=== PATIENT | male | born 1950 | race Caucasian/White ===

== ENCOUNTER 2021-06-18 10:46 | Emergency (ER) | payer MEDICARE, SELFPAY ==
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
[2021-06-18 11:06] VITALS: BP 105/60; PULSE 98; RESP 20; TEMP 36.6; O2SAT 99
--- NOTE | 2021-06-18 11:35 | ED.URI ---
HPI - URI/Sore Throat General Chief Complaint: Upper Respiratory Infection Stated Complaint: Congestion Time Seen by Provider: 06/18/21 11:19 Source: patient and RN notes reviewed Mode of arrival: ambulatory Limitations: no limitations History of Present Illness HPI Narrative: Patient presents today with a 10-day history of shortness of breath, productive cough, fever up to 100.3, nasal congestion, rhinorrhea. Denies nausea, vomiting, sore throat, ear pain. History of COPD. He does not use inhalers, use oxygen. States he has been taking Mucinex once a day since he has been ill. MD elicited complaint: fever and cough Related Data Home Medications Medication Instructions Recorded Confirmed finasteride 5 mg PO DAILY 06/18/21 06/18/21 omeprazole [Prilosec] 10 mg PO DAILY 06/18/21 06/18/21 tamsulosin 0.8 mg PO DAILY 06/18/21 06/18/21 Allergies Allergy/AdvReac Type Severity Reaction Status Date / Time No Known Allergies Allergy Verified 12/25/15 15:04 Review of Systems Review of Systems: CONSTITUTIONAL: Denies body aches, chills, or sweats.+ Your EYES: Denies visual changes, redness, or discharge. ENT: Denies sore throat, or otalgia.+ Rhinorrhea, congestion CARDIOVASCULAR: Denies chest pain, palpitations, or edema. RESPIRATORY: + Cough, shortness of breath GASTROINTESTINAL: Denies abdominal pain, nausea, vomiting, or diarrhea. GENITOURINARY: Denies dysuria or hematuria. SKIN: Denies rash, itching, or wounds. MUSCULOSKELETAL: Denies back pain, joint pain, or myalgia. NEUROLOGIC: Denies headache, numbness, tingling, or weakness. PSYCH: Denies depression or anxiety. [facility] Past Medical History Medical History (Updated 06/18/21 @ 12:24 by Kelly Mcdonnell, CHEMICAL ECONOMIST, ) COPD (chronic obstructive pulmonary disease) Comments At time of signature, I have reviewed and agree with nursing past medical, surgical, social and family history unless otherwise noted. Please see nursing chart for further information. There is no relevant family history pertinent to the presenting complaint Exam Narrative: GENERAL: Well-appearing, well-nourished, and in no acute distress. HEAD: Normocephalic, atraumatic. EYES: EOMI. No redness or drainage. Conjunctivae normal. ENT: Mucous membranes pink and moist. Nares clear. No rhinorrhea. TMs normal bilaterally. Throat normal. Uvula midline. NECK: Normal AROM. Supple. No lymphadenopathy. CHEST: No respiratory distress. Slight crackles in the bilateral bases, otherwise clear. HEART: Regular rate and rhythm. No murmur appreciated. Normal peripheral pulses. EXTREMITIES: Normal range of motion. No edema. SKIN: Warm, dry, no rash. Capillary refill normal. Normal skin turgor. NEURO: No focal deficits. Alert and oriented x3. Gait steady. PSYCH: Normal affect. No signs of depression or anxiety. Course Vital Signs Vital signs: Vital Signs Temperature 97.8 F 06/18/21 11:06 Pulse Rate 98 06/18/21 11:06 Respiratory Rate 20 06/18/21 11:06 Blood Pressure 105/60 06/18/21 11:06 Pulse Oximetry 99 06/18/21 11:06 Temperature 97.8 F 06/18/21 11:06 Pulse Rate 98 06/18/21 11:06 Respiratory Rate 20 06/18/21 11:06 Blood Pressure 105/60 06/18/21 11:06 Pulse Oximetry 99 06/18/21 11:06 Reviewed. Pt has been instructed to follow up with his PCP regarding his elevated blood pressure today. MDM - URI/Sore Throat Differential Diagnosis Differential diagnosis: Likely upper respiratory infection, sinusitis, viral infection, bronchitis and other (COPD exacerbation, COVID-19) Lab Data Attestation: I reviewed the patient's lab results. Lab results narrative: Rapid COVID-19 test positive Imaging Data Radiologist's impression: ITS Impressions Chest X-Ray 06/18/21 11:46 IMPRESSION: 1. Opacities in the left lower lung zone most likely related to a prominent left paracardial fat pad and adjacent lingular atelectasis. Pneumonia considered less likely. Crit
== END 2021-06-18 12:30 | disposition home or self-care (01) ==
PROVIDERS: Emergency Provider Nurse Practitioner
DX: U07.1 COVID-19 (principal); J44.9 Chronic obstructive pulmonary disease, unspecified
CPT/HCPCS: 71046; 87426; 99203; C9803; G0463

== ENCOUNTER 2022-02-09 13:24 | Emergency (ER) | payer MEDICARE, SELFPAY ==
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
[2022-02-09 13:30] VITALS: BP 113/66; PULSE 103; RESP 20; TEMP 37.3; O2SAT 100
--- NOTE | 2022-02-09 13:57 | ED.URI ---
HPI - URI/Sore Throat General Chief Complaint: Upper Respiratory Infection Stated Complaint: Sore Throat/Chest Congestion/Cough Time Seen by Provider: 02/09/22 13:55 Source: patient, RN notes reviewed and old records reviewed Mode of arrival: ambulatory Limitations: no limitations History of Present Illness HPI Narrative: 71-year-old male presents to [facility] with complaints of sore throat and productive cough for the past 4 days reports he is not sleeping well related to the cough. He reports that he has chest pain along the lower rib lines of his chest wall bilaterally related to cough and does have some increased pain when he takes a deep breath. He report some dyspnea with cough and activity does have history of COPD. Request refill of Albuterol states left inhaler in [place]. MD elicited complaint: cough and sore throat Pertinent past history: COPD Related Data Home Medications Medication Instructions Recorded Confirmed finasteride 5 mg PO DAILY 06/18/21 02/09/22 omeprazole [Prilosec] 10 mg PO DAILY 06/18/21 02/09/22 tamsulosin 0.8 mg PO DAILY 06/18/21 02/09/22 Allergies Allergy/AdvReac Type Severity Reaction Status Date / Time No Known Allergies Allergy Verified 02/09/22 13:47 Review of Systems Review of Systems: CONSTITUTIONAL: low grade fever, no chills, or sweats. EYES: Denies visual changes, redness, or discharge. ENT: Denies rhinorrhea, congestion, positive for sore throat, or otalgia. CARDIOVASCULAR: Denies chest pain, palpitations, or edema. pain along ribs form coughing RESPIRATORY: Positive for cough states some dyspnea at times with exertion and cough GASTROINTESTINAL: Denies abdominal pain, nausea, vomiting, or diarrhea. GENITOURINARY: Denies dysuria or hematuria. SKIN: Denies rash or itching. MUSCULOSKELETAL: Denies back pain, joint pain,no myalgia NEUROLOGIC: Denies headache, numbness, or weakness. PSYCHIATRIC: Denies anxiety or depression. All systems reviewed & are unremarkable except as noted in HPI and below PMFSH Past Medical History Medical History (Updated 02/10/22 @ 22:28 by Valeria Munoz NP) BPH (benign prostatic hyperplasia) Closed fracture of left clavicle COPD (chronic obstructive pulmonary disease) COVID-19 05/2021 GERD (gastroesophageal reflux disease) Surgical History Surgical History (Updated 02/09/22 @ 14:19 by Valeria Munoz NP) H/O inguinal hernia repair History of tonsillectomy As child History of umbilical hernia repair Social History Social History (Updated 02/09/22 @ 14:15 by Valeria Munoz NP) Smoking status: Former smoker Tobacco type: cigarettes Additional smoking assessment comments: quit 15 years ago Alcohol intake: current Substance use type: does not use Living arrangements: with family Gender identity (if verbalized by the patient): Male Comments At time of signature, agree with nursing past medical, surgical, social and family history. There is no relevant family history pertinent to the presenting complaint Exam Narrative: GENERAL: Ill-appearing, well-nourished, and in no acute distress. HEAD: Normocephalic, atraumatic. EYES: PERRLA and EOMI. ENT: Nares with mild redness, some clear rhinorrhea no epistaxis. Mucous membranes moist.TM's normal with good light reflex, throat red with no exudates or lesions, no exudates or lesions, tonsils absent NECK: Supple.no lymphadenopathy CHEST: Rhonchi to left base and mid lung with decreased breath sounds on auscultation. No acute respiratory distress.No tachypnea noted SAO2 100% harsh cough noted HEART: Regular rate and rhythm. No murmur heard. Normal peripheral pulses. ABDOMEN: Soft, nontender, nondistended, normal active bowel sounds. EXTREMITIES: Normal range of motion. No edema. SKIN: Warm, dry, no rash. NEURO: No focal deficits. Alert and oriented x3. Course Course Level of Care: Express Care Visit Vital Signs Vital signs: Vital Signs Temperature 37.3 C 02/09
== END 2022-02-09 15:05 | disposition home or self-care (01) ==
PROVIDERS: Emergency Provider Registered Nurse
DX: J18.1 Lobar pneumonia, unspecified organism (principal); Z87.891 Personal history of nicotine dependence; N40.0 Benign prostatic hyperplasia without lower urinary tract symptoms; J44.9 Chronic obstructive pulmonary disease, unspecified; K21.9 Gastro-esophageal reflux disease without esophagitis; Z86.16 Personal history of COVID-19
CPT/HCPCS: 71046; 99213; G0463

== ENCOUNTER 2022-02-11 11:21 | Emergency (ER) | payer MEDICARE, SELFPAY ==
[2022-02-11 11:28] VITALS: BP 119/75; PULSE 86; RESP 14; TEMP 36.9; O2SAT 100
--- NOTE | 2022-02-11 11:33 | ED.SKABFB ---
HPI - Skin/Abscess/Foreign Bdy General Chief complaint: Skin/Abscess/Foreign Body Stated complaint: Rash Time Seen by Provider: 02/11/22 11:33 Source: patient and RN notes reviewed History of Present Illness HPI narrative: Patient is a 71-year-old male who presents the urgent care with complaints of a rash and itchiness. Patient states that he was seen at our facility 2 days ago and started on prednisone and levofloxacin. Patient states that he is unsure which 1 he is allergic to but discontinued the medications. Patient states he feels much better after being on the antibiotics to treat his pneumonia. Patient reports of decreasing cough and denies of any fevers, chills, chest pain. Patient has been taking Benadryl for the itch and using an anti-itch cream. No other acute complaints. No acute distress noted. Patient aware of the plan of care. Some parts of this dictation were generated by voice recognition software and may contain typographical and/or grammatical inaccuracies. Related Data Home Medications Medication Instructions Recorded Confirmed finasteride 5 mg PO DAILY 06/18/21 02/11/22 omeprazole [Prilosec] 10 mg PO DAILY 06/18/21 02/11/22 tamsulosin 0.8 mg PO DAILY 06/18/21 02/11/22 Allergies Allergy/AdvReac Type Severity Reaction Status Date / Time levofloxacin Allergy Itching Verified 02/11/22 11:35 Review of Systems Review of Systems: CONSTITUTIONAL: Denies fever, chills, or sweats. EYES: Denies visual changes, redness, or discharge. ENT: Denies rhinorrhea, congestion, sore throat, or otalgia. CARDIOVASCULAR: Denies chest pain, palpitations, or edema. RESPIRATORY: Denies cough or dyspnea. GASTROINTESTINAL: Denies abdominal pain, nausea, vomiting, or diarrhea. GENITOURINARY: Denies dysuria or hematuria. SKIN: Reports of an itchy rash to bilateral lower arms and right lower leg MUSCULOSKELETAL: Denies back pain, joint pain, or myalgia. NEUROLOGIC: Denies headache, numbness, or weakness. All other systems reviewed are negative, except as documented in HPI. [facility] Past Medical History Medical History (Updated 02/11/22 @ 11:51 by SAMMIE Clark) BPH (benign prostatic hyperplasia) Closed fracture of left clavicle COPD (chronic obstructive pulmonary disease) COVID-19 05/2021 GERD (gastroesophageal reflux disease) Surgical History Surgical History (Updated 02/09/22 @ 14:19 by Valeria Munoz NP) H/O inguinal hernia repair History of tonsillectomy As child History of umbilical hernia repair Social History Social History (Updated 02/09/22 @ 14:15 by Valeria Munoz NP) Smoking status: Former smoker Tobacco type: cigarettes Additional smoking assessment comments: quit 15 years ago Alcohol intake: current Substance use type: does not use Gender identity (if verbalized by the patient): Male Comments At the time of my signature, I reviewed and agree with the nursing past medical, surgical, social, and family history. There is no relevant family history pertinent to the patient complaint. Exam Narrative: GENERAL: This is a well-nourished, well-developed patient, in no apparent distress. HEAD: normocephalic, atraumatic. EYES: PERRL. Sclera clear/white. Vision is grossly intact. EARS: External ears normal, auditory canals clear and without drainage, TMs normal without perforation. Hearing grossly intact. NOSE: External nose normal with no obvious nasal discharge, nares without redness, no rhinorrhea. THROAT: Mucous membranes moist, posterior pharynx clear. Mild postnasal drainage NECK: Neck supple CARDIOVASCULAR: Regular rate and rhythm without murmurs, gallops, or rubs. RESPIRATORY: Scant expiratory wheeze to right upper lobe slightly decreased bibasilar SKIN: Erythemic fine papular pruritic dermatitis noted to bilateral forearms and right lower leg NEURO: awake, alert, and oriented to person, place and time. There were no obvious focal neurologic abnormalities. EXTREMITIES:
[2022-02-11 11:36] VITALS: BP 119/75; PULSE 86; RESP 14; TEMP 36.9; O2SAT 100
== END 2022-02-11 11:55 | disposition home or self-care (01) ==
PROVIDERS: Emergency Provider Nurse Practitioner Family
DX: L27.0 Generalized skin eruption due to drugs and medicaments taken internally (principal); T36.8X5A Adverse effect of other systemic antibiotics, initial encounter; Z87.891 Personal history of nicotine dependence; N40.0 Benign prostatic hyperplasia without lower urinary tract symptoms; J44.9 Chronic obstructive pulmonary disease, unspecified; K21.9 Gastro-esophageal reflux disease without esophagitis; Z86.16 Personal history of COVID-19
CPT/HCPCS: 99213; G0463

== ENCOUNTER 2022-04-19 16:54 | Emergency (ER) | payer MEDICARE, SELFPAY ==
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
--- NOTE | 2022-04-19 17:07 | ED.URI ---
HPI - URI/Sore Throat General Chief Complaint: Fever Stated Complaint: chest pains and around covid patient Time Seen by Provider: 04/19/22 17:07 Source: patient Mode of arrival: ambulatory Limitations: no limitations History of Present Illness HPI Narrative: 71 yo M presents with c/o continued cough, fatigue, some mild SOB with exertion. Was seen here about a week ago with similar complaint. Was given levaquin that caused rash but he continue to take medication. Is concerned that he is still sick or has now developed pneumonia. Speaking in full sentences. No resp distress noted. No other complaints today. All systems reviewed and negative except as noted above. Related Data Home Medications Medication Instructions Recorded Confirmed finasteride 5 mg tablet 5 mg PO DAILY 06/18/21 04/19/22 omeprazole 10 mg capsule,delayed 10 mg PO DAILY 06/18/21 04/19/22 release tamsulosin 0.4 mg capsule 0.8 mg PO DAILY 06/18/21 04/19/22 Allergies Allergy/AdvReac Type Severity Reaction Status Date / Time levofloxacin Allergy Itching Verified 04/19/22 17:09 Review of Systems Review of Systems: CONSTITUTIONAL: Denies fever, chills, or sweats. Reports fatigue. EYES: Denies visual changes, redness, or discharge. ENT: Denies rhinorrhea, congestion, sore throat, or otalgia. CARDIOVASCULAR: Denies chest pain, palpitations, or edema. RESPIRATORY: Reports cough and dyspnea on exertion. GASTROINTESTINAL: Denies abdominal pain, nausea, vomiting, or diarrhea. GENITOURINARY: Denies dysuria or hematuria. SKIN: Denies rash or itching. MUSCULOSKELETAL: Denies back pain, joint pain, or myalgia. NEUROLOGIC: Denies headache, numbness, or weakness. PSYCHIATRIC: Denies anxiety or depression. All other systems reviewed are negative, except as documented in HPI. [facility] Past Medical History Medical History (Updated 04/20/22 @ 00:00 by Nabor Combs) BPH (benign prostatic hyperplasia) Closed fracture of left clavicle COPD (chronic obstructive pulmonary disease) COVID-19 05/2021 GERD (gastroesophageal reflux disease) Surgical History Surgical History (Updated 02/09/22 @ 14:19 by Valeria Munoz NP) H/O inguinal hernia repair History of tonsillectomy As child History of umbilical hernia repair Social History Social History (Updated 02/09/22 @ 14:15 by Valeria Munoz NP) Smoking status: Former smoker Tobacco type: cigarettes Additional smoking assessment comments: quit 15 years ago Alcohol intake: current Substance use type: does not use Gender identity (if verbalized by the patient): Male Comments At time of signature, agree with nursing past medical, surgical, social and family history. There is no relevant family history pertinent to the presenting complaint. Exam Narrative: GENERAL: This is a well-nourished, well-developed patient, in no apparent distress. HEAD: normocephalic, atraumatic. EYES: PERRL. Sclera clear/white. Vision is grossly intact. EARS: External ears normal, auditory canals clear and without drainage, TMs normal without perforation. Hearing grossly intact. NOSE: External nose normal with no obvious nasal discharge, nares without redness, no rhinorrhea. THROAT: Mucous membranes moist, posterior pharynx clear. NECK: Neck supple, non-tender without lymphadenopathy, masses or thyromegaly. CARDIOVASCULAR: Regular rate and rhythm without murmurs, gallops, or rubs. RESPIRATORY: Decreased lung sounds to bilateral bases otherwise lung sounds are clear. Breath sounds equal bilaterally. No wheezes, rales, or rhonchi. SKIN: warm, Dry, intact with no suspicious lesions or rash, good texture and turgor. NEURO: awake, alert, and oriented to person, place and time. There were no obvious focal neurologic abnormalities. EXTREMITIES: No joint tenderness, effusion, or edema noted. Course Course Level of Care: Express Care Visit Vital Signs Vital signs: Vital Signs Temperature 37.8 C H 04/19/22 17:10
[2022-04-19 17:10] VITALS: BP 138/74; PULSE 79; RESP 16; TEMP 37.8; O2SAT 99
== END 2022-04-19 18:01 | disposition home or self-care (01) ==
PROVIDERS: Emergency Provider Nurse Practitioner Family
DX: J18.9 Pneumonia, unspecified organism (principal); Z20.822 Contact with and (suspected) exposure to COVID-19; Z87.891 Personal history of nicotine dependence; N40.0 Benign prostatic hyperplasia without lower urinary tract symptoms; J44.9 Chronic obstructive pulmonary disease, unspecified; K21.9 Gastro-esophageal reflux disease without esophagitis; Z86.16 Personal history of COVID-19
CPT/HCPCS: 71046; 87426; 99213; C9803; G0463

== ENCOUNTER 2023-02-10 08:48 | Emergency (ER) | payer MEDICARE, SELFPAY ==
[2023-02-10 08:54] VITALS: BP 120/69; PULSE 98; RESP 20; TEMP 36.6; O2SAT 95
--- NOTE | 2023-02-10 09:04 | ED.EAR ---
HPI - Ear Problem General Chief complaint: Ear Stated complaint: ear pain Time Seen by Provider: 02/10/23 09:06 Source: patient and RN notes reviewed Mode of arrival: ambulatory Limitations: no limitations History of Present Illness HPI Narrative: 72-year-old male presents with concern for fullness in the left ear for about 2 months. He reports he also has had sinus pressure and congestion, drainage on the left side for the same amount of time. He reports he has not taken any medications for it. He denies any pain, drainage from the ear. MD Complaint: other (Ear fullness) Related Data Home Medications Medication Instructions Recorded Confirmed finasteride 5 mg tablet 5 mg PO DAILY 06/18/21 02/10/23 tamsulosin 0.4 mg capsule 0.8 mg PO DAILY 06/18/21 02/10/23 folic acid 1 mg tablet 1 mg PO DAILY 02/10/23 02/10/23 oxybutynin chloride 5 mg 5 mg PO BID 02/10/23 02/10/23 tablet,extended release 24 hr Allergies Allergy/AdvReac Type Severity Reaction Status Date / Time levofloxacin Allergy Itching Verified 02/10/23 09:07 Review of Systems Review of Systems: CONSTITUTIONAL: Denies malaise, chills, sweats, or fever. EYES: Denies visual changes, redness, or discharge. ENT: Reports left ear fullness, left sinus congestion, pressure, drainage CARDIOVASCULAR: Denies chest pain, palpitations, or edema. RESPIRATORY: Denies cough. Denies dyspnea. GASTROINTESTINAL: Denies abdominal pain, nausea, vomiting, diarrhea SKIN: Denies rash or itching. MUSCULOSKELETAL: Denies myalgia. NEUROLOGIC: Denies headache. All systems reviewed & are unremarkable except as noted in HPI and below PMFSH Past Medical History Medical History (Updated 02/10/23 @ 09:13 by Meenakshi August NP) BPH (benign prostatic hyperplasia) Closed fracture of left clavicle COPD (chronic obstructive pulmonary disease) COVID-19 05/2021 GERD (gastroesophageal reflux disease) Surgical History Surgical History (Updated 02/09/22 @ 14:19 by Valeria Munoz NP) H/O inguinal hernia repair History of tonsillectomy As child History of umbilical hernia repair Social History Social History (Updated 02/09/22 @ 14:15 by Valeria Munoz NP) Smoking status: Former smoker Tobacco type: cigarettes Additional smoking assessment comments: quit 15 years ago Alcohol intake: current Substance use type: does not use Living arrangements: with family Gender identity (if verbalized by the patient): Male Comments At time of signature, agree with nursing past medical, surgical, social and family history. There is no relevant family history pertinent to the presenting complaint Exam Narrative: GENERAL: Well-appearing, well-nourished, and in no acute distress. HEAD: Normocephalic EYES: PERRLA, conjunctivae clear ENT: Nares clear, left turbinates edematous, erythematous. Mucous membranes moist. Left tM pearly jenkins with dull light reflex, right TM with sharp reflex; no tragal tenderness. Oropharynx not erythematous without lesions. Tonsils not enlarged and without exudate, no drooling, no hoarseness, no trismus, uvula midline. NECK: Supple. No lymphadenopathy CHEST: Clear to auscultation, breath sounds equal. No wheezing, rhonchi, rales, or stridor. No respiratory distress, speaks in full sentences. HEART: Regular rate and rhythm. No murmur heard. SKIN: Warm, dry, no rash. NEURO: Alert and oriented x3. PSYCH: Normal mood and affect Course Course Emergency Course: Patient is aware of diagnosis, understands and agrees to treatment plan. Anticipatory guidance given. Patient agrees to follow-up as directed and is aware of reasons to seek care at the emergency department. Portions of this record may have been created with voice recognition software Level of Care: Express Care Visit Vital Signs Vital signs: Vital Signs Temperature 97.8 F 02/10/23 08:54 Pulse Rate 98 02/10/23 08:54 Respiratory Rate 20 02/10/23 08:54 Blood Pressure
== END 2023-02-10 09:17 | disposition home or self-care (01) ==
PROVIDERS: Emergency Provider Nurse Practitioner
DX: J01.90 Acute sinusitis, unspecified (principal); H74.8X2 Other specified disorders of left middle ear and mastoid; N40.0 Benign prostatic hyperplasia without lower urinary tract symptoms; J44.9 Chronic obstructive pulmonary disease, unspecified; K21.9 Gastro-esophageal reflux disease without esophagitis; Z86.16 Personal history of COVID-19
CPT/HCPCS: 99213; G0463

== ENCOUNTER 2025-08-25 13:57 | Emergency (ER) | payer MEDICARE, SELFPAY ==
[2025-08-25 14:06] VITALS: BP 151/83; PULSE 100; RESP 16; TEMP 36.7; O2SAT 100
--- NOTE | 2025-08-25 14:06 | ED.SKABFB ---
HPI - Skin/Abscess/Foreign Bdy General Chief complaint: Skin/Abscess/Foreign Body Stated complaint: Rash around stomach Time Seen by Provider: 08/25/25 14:21 Source: patient, RN notes reviewed and old records reviewed Mode of arrival: ambulatory Limitations: no limitations History of Present Illness HPI narrative: 75-year-old male presents to the [facility] with complaints of a rash to his abdomen that has been intermittent for approximately 2 months. In May he was treated with doxycycline and clobetasol. In June he was treated with triamcinolone. Has not followed up with his primary care provider. Related Data Home Medications ?Medication ?Instructions ?Recorded ?Confirmed ?Last Taken ?Type finasteride 5 mg tablet 5 mg PO DAILY 06/18/21 02/10/23 Unknown History tamsulosin 0.4 mg capsule 0.8 mg PO DAILY 06/18/21 02/10/23 Unknown History folic acid 1 mg tablet 1 mg PO DAILY 02/10/23 02/10/23 Unknown History oxybutynin chloride 5 mg 5 mg PO BID 02/10/23 02/10/23 Unknown History tablet,extended release 24 hr Allergies Allergy/AdvReac Type Severity Reaction Status Date / Time levofloxacin Allergy Itching Verified 08/25/25 13:59 Review of Systems Review of Systems: All systems reviewed & are unremarkable except as noted in HPI and below Constitutional: Constitutional: Reports no additional constitutional complaints ENT: Reports system reviewed and no additional complaints, except as documented Cardiovascular: Cardiovascular: Reports no additional cardiovascular complaints, Denies chest pain and Denies dyspnea Respiratory: Respiratory: Reports no additional respiratory complaints, Denies chest congestion, Denies cough and Denies dyspnea Musculoskeletal: Musculoskeletal: Reports no additional musculoskeletal complaints Integumentary/Breasts: Skin/Breast: Reports as per HPI and Reports rash PMFSH Past Medical History Medical History COVID-19 05/2021 GERD (gastroesophageal reflux disease) Closed fracture of left clavicle BPH (benign prostatic hyperplasia) COPD (chronic obstructive pulmonary disease) Surgical History Surgical History H/O inguinal hernia repair History of tonsillectomy As child History of umbilical hernia repair Social History Social History (Reviewed 08/26/25 @ 20:15 by BARRY Martinez Smoking status: Former smoker Tobacco type: cigarettes Additional smoking assessment comments: quit 15 years ago Alcohol intake: current Substance use type: does not use Living arrangements: with family Gender identity (if verbalized by the patient): Male Comments At the time of my signature, I reviewed and agree with the nursing past medical, surgical, social, and family history. There is no relevant family history pertinent to the patient complaint. Exam Const: General: cooperative, healthy appearing, comfortable, no acute distress, well developed, alert and well nourished Nutritional Appearance: well nourished Orientation/consciousness: patient oriented x3 Limitations: no limitations HENMT: Head: normal to inspection Eyes: General: appearance normal, both eyes and all related structures Alignment and Position: alignment normal Neck: Neck: normal visual inspection, full ROM, no lymphadenopathy and no meningeal signs Chest: Chest palpation & inspection: normal inspection of the chest Resp: Effort & Inspection: normal respiratory effort and able to speak in complete sentences Auscultation: clear to auscultation bilaterally, no crackles, no rales, no rhonchi and no wheezes Cardio: Rate: regular rate Skin: General skin exam: normal color and no rashes or lesions noted Rashes: rashes noted ( find pink rash, not raised patient describes as itchy generalized abdomen) Neuro: General: patient oriented x3, gait normal, moves all extremities and no meningeal signs Cognition (Neuro): normal cognition Speech: normal speech Gait exam (Neuro): Normal gait present Extrem: General: normal to inspection, full ROM, capillary refill normal and normal gait Psych: Appearance: grossly normal and well kempt Mental Status: mental status grossly normal Speech and movement: Normal speech and movement present and Clear speech present Affect: normal affect Attitude: cooperative Course Course Level of Care: Express Care Visit Vital Signs Vital signs: Vital Signs Temperature 98.1 F 08/25/25 14:06 Pulse Rate 100 08/25/25 14:06 Respiratory Rate 16 08/25/25 14:06 Blood Pressure 151/83 H 08/25/25 14:06 Pulse Oximetry 100 08/25/25 14:06 Oxygen Delivery Room Air 08/25/25 14:06 Temperature 98.1 F 08/25/25 14:06 Pulse Rate 100 08/25/25 14:06 Respiratory Rate 16 08/25/25 14:06 Blood Pressure 151/83 H 08/25/25 14:06 Pulse Oximetry 100 08/25/25 14:06 Oxygen Delivery Room Air 08/25/25 14:06 reviewed MDM MDM Narrative Medical decision making narrative: patient presents with an on and off rash for over 2 months. Has been treated twice with steroid creams, once with antibiotic. Has not followed up to find the cause of this rash. Discussed in great detail the importance of following up probably with dermatology or primary care provider for the underlying cause of why this rash keeps returning. Patient denies any new creams ointments lotions detergents. Discharge instructions reviewed with patient, as well as provided in writing per nursing staff. The instructions also include specific and strict return/GO TO THE ER as well as f/u information. All questions have been answered, and the patient deny any further questions with discharge and discharge plan. Some parts of this dictation were generated by voice recognition software and may contain typographical and/or grammatical inaccuracies. Differential Diagnosis Differential Diagnosis: Differential diagnostic considerations for skin/abscess/foreign body issues include abscess of skin or subcutaneous tissue, viral exanthem, dermatophytosis, urticaria, herpes zoster, allergic reaction to drug, cellulitis, eczema, insect bites, impetigo, contact dermatitis, vasculitis. Critical Care Time Critical Care Time Critical Care Time: No Discharge Plan Discharge Clinical Impression: Chronic pruritic rash in adult Patient Disposition: Home Condition: Stable Instructions: Antibiotic Form, Urticaria (ED) Additional Instructions: The most important part of your care is follow up with Primary care provider. You may even want to consider seeing a car hop as soon as possible to figure out what the underlying cause of this rashes. Without treating an underlying cause the rash will keep coming back Today your blood pressure was 151/83. Please follow-up with your primary care provider within 2 weeks to have this rechecked. Untreated or undertreated blood pressure can the lead to more serious health issues Take Zyrtec every day for 14 days Take Pepcid 20mg daily for 14 days Take the steroids starting today and take as prescribed apply your triamcinolone ointment as prescribed twice a day. Avoid hot showers, Take cool showers. Hot showers will make rashes worse Apply cool compresses every 2-3 hours for 15 minutes Go to the ER for new or worsening symptoms such as shortness of breath. Patient Language: German Prescriptions: New methylprednisolone [Medrol (Doug)] 4 mg tablets,dose pack See Rx Instructions PO .COMPLEX Qty: 21 0RF Rx Instructions: orally per package directions No Action tamsulosin 0.4 mg Capsule 0.8 mg PO DAILY finasteride 5 mg Tablet 5 mg PO DAILY folic acid 1 mg tablet 1 mg PO DAILY oxybutynin chloride 5 mg tablet extended release 24hr 5 mg PO BID Follow-up/Referrals: PHYSICIAN NOT ON STAFF,NONSTAFF [Primary Care Provider] Time of Disposition: 14:34
== END 2025-08-25 14:40 | disposition home or self-care (01) ==
PROVIDERS: Emergency Provider Nurse Practitioner
DX: R21 Rash and other nonspecific skin eruption (principal); Z87.891 Personal history of nicotine dependence
CPT/HCPCS: 99213; G0463